=== PATIENT | female | born 1955 | race Caucasian/White ===

== ENCOUNTER → 2017-03-12 | Outpatient (CLI) | payer BC ==
--- NOTE | 2017-03-12 18:27 | WWHP ---
[facility] - HISTORY AND PHYSICAL CHIEF COMPLAINT: The patient is here for her routine gynecologic exam. HPI: This is a 61-year-old, G2, P2, with an LMP of 1997, who is status post vaginal hysterectomy for benign reasons. The patient is without gynecologic complaints. PAST MEDICAL HISTORY: Jon disease with resulting hypothyroidism, elevated cholesterol, chronic hypertension, kidney stones, seasonal allergies, skin melanoma in 2010 and history of osteopenia. MEDICATIONS: 1. Pravachol 20 mg daily. 2. Dyazide 37.5/25 mg 1/2 tablet daily. 3. Levothyroxine 25 mcg daily. 4. Vitamin D3 2000 units daily. 5. Aspirin 81 mg daily. 6. [place] p.r.n. 7. Probiotic 1 to 2 daily. 8. Calcium 600 mg daily. 9. Neosho-3 supplement daily. ALLERGIES: TO CODEINE, WHICH CAUSED VOMITING. PAST SURGICAL, TAILER IN AND FAMILY HISTORIES: Unchanged from the 12/29/2015 H and P. SOCIAL HISTORY: She denies tobacco, alcohol and drug use. She has been since 1973 and continues to work at [employer]. REVIEW OF SYSTEMS: She has gained about 10 pounds over the last year. She denies respiratory, cardiac or GI problems. PHYSICAL EXAM: Blood pressure 138/83, height 5 feet 3 inches, weight 198 pounds, temperature 98.0, pulse 78. This is a well-developed, well-nourished, white female, who is alert and oriented x3, in no acute distress. HEENT: Within normal limits. NECK: Supple without mass or thyromegaly. CHEST AND LUNGS: Clear to auscultation. HEART: Regular rate and rhythm. BREASTS: Without mass or discharge. AXILLARY: Negative for adenopathy. BACK: Negative for CVA tenderness. ABDOMEN: Soft, nontender without palpable masses. PELVIC: External genitalia reveals nveu-tf-syhoybhk atrophy without lesions. Vagina reveals lukw-so-nonzexla atrophy without lesions. There is a grade 2 rectocele noted. The vaginal cuff is well supported. Bimanual is negative for mass or tenderness. RECTOVAGINAL: Negative for mass or tenderness, but does confirm a rectocele. This is negative for occult blood. EXTREMITIES: Nontender. IMPRESSION: 1. A 61-year-old menopausal female who is status post vaginal hysterectomy for benign reasons with grade 2 rectocele which is asymptomatic. 2. History of osteopenia. PLAN: 1. Pap smears have been discontinued. 2. Self-breast examination was discussed. 3. Diagnostic mammogram with right breast ultrasound is due and she will have this done at [facility]. 4. Osteoporosis prevention was discussed. She will follow up with her manager of clinical for bone density testing and further treatment. She states he is managing a parathyroid problem at this time and this may affect her calcium within her body. 5. She will return in 1 year. MMODL / IJN: [id number] /
== END | disposition home or self-care (01) ==
DX: Z01.419 Encounter for gynecological examination (general) (routine) without abnormal findings (principal)

== ENCOUNTER → 2018-03-19 | Outpatient (CLI) | payer BC ==
[2018-03-19 11:04] VITALS: BP 168/72; PULSE 77; TEMP 96.6; BMI 35.0
--- NOTE | 2018-03-19 11:55 | P.HPOB ---
History of Present Illness H&P Date: 03/19/18 Chief Complaint: The patient is here for her routine gynecologic exam. This is a 62-year-old G2 PII with an LMP of 1997. The patient is status post vaginal hysterectomy done for benign reasons. The patient is without gynecologic complaints. She has been followed for a grade 2 rectocele which has been asymptomatic unless she gets very constipated when it can feel like the bulge gets bigger. Review of Systems The patient's weight has been stable over the last year. She denies respiratory , cardiac, or G.I. problems. 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 Osteopenia. 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 She had a vaginal hysterectomy for uterine fibroids. History of Any Multi-Drug Resistant Organisms: None Reported Past Surgical History: Breast Surgery (Breast reduction and breast cyst removed. ), Cholecystectomy, Hysterectomy (Vaginal hysterectomy in 1997), Orthopedic Surgery (Arthroscopic knee surgery) Additional Past Surgical History / Comment(s): Melanoma removed 2009, Lamont neuroma surgery 2006. Colonoscopy 2015 and this was her 2nd. 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 - Past Family History Father Family Medical History: No Reported History Additional Family Medical History / Comment(s): To aunts and a cousin had breast cancer. Grandfather had diabetes. Medications and Allergies Home Medications Medication Instructions Recorded Confirmed Type Aspirin PO DAILY 03/19/18 History Calcium Carbonate [Calcium] PO DAILY 03/19/18 History Cholecalciferol (Vitamin D3) 4,000 PO DAILY 03/19/18 History [Vitamin D3] Levothyroxine Sodium [Synthroid] 50 mcg DAILY 03/19/18 03/19/18 History Pravastatin Sodium [Pravachol] PO DAILY 03/19/18 History Triamterene-Hctz 37.5-25Mg PO DAILY 03/19/18 History [Dyazide 37.5-25 Capsule] Allergies Allergy/AdvReac Type Severity Reaction Status Date / Time codeine AdvReac Severe vomit Unverified 03/19/18 11:01 Exam Vital Signs Temp Pulse BP 03/19/18 11:01 96.6 F L 77 168/72 Intake and Output 03/18/18 03/19/18 03/19/18 22:59 06:59 14:59 Other: Weight 89.811 kg Height 5'3", weight 198 pounds, ZHOU 35.1 This is a well-developed well-nourished heavyset white female who is alert and oriented times 3 in no acute distress. HEENT: Within normal limits. NECK: Supple without mass or thyromegaly. CHEST AND LUNGS: Clear to auscultation. HEART: Regular rate and rhythm. BREASTS: Are without mass or discharge. Breasts are consistent with previous breast reduction surgery. AXILLARY EXAM: Negative for adenopathy. BACK: Negative for CVA tenderness. ABDOMEN: Soft, nontender, without palpable masses. PELVIC EXAM: External genitalia appears normal with mild atrophy. Vagina appears normal is mild atrophy. There is a grade 2 rectocele stable from her previous exam. Bimanual examination is negative for mass or tenderness. RECTAL EXAM: Rectovaginal exam is negative for mass or tenderness and is negative for occult blood. The rectal exam does confirm a small rectocele. EXTREMITIES: Nontender. IMPRESSION: 1. 62-year-old menopausal female status post vaginal hysterectomy for benign reasons with stable grade 2 rectocele. 2. His tree of osteopenia managed by her fire alarm dispatcher. PLAN: 1. Pap smears have been discontinued. 2. Self breast awareness was discussed with the patient. 3. The patient is due for a bilateral diagnostic mammogram due to her previous abnormal mammogram done approximately 2 years ago. The order slip was getting to the patient for this and she states she has an appointment on 03/24/2018 at [facility]. The patient thought she did a follow-up breast imaging study in February 2017, but [facility] was called and they had no record of this. 4. Osteoporosis prevention was discussed. She will continue to be managed for her osteopenia by her fire alarm dispatcher as she has done in the past. This is important for her to follow up with the fire alarm dispatcher especially because of her issues with her parathyroid gland. 5. We have discussed her elevated blood pressure. She states she will do self blood pressure checks at work and follow up with Dr. Ovalle for blood pressure elevations. 6. We will continue to follow her small rectocele conservatively. She was advised to avoid holding her stool longer than necessary. She will call if she is having problems. 7. She will return in one year.
== END | disposition home or self-care (01) ==
LOC: WWCWWP 10:39
PROVIDERS: ATTEND Obstetrics & Gynecology
DX: Z53.9 Procedure and treatment not carried out, unspecified reason (principal)

== ENCOUNTER → 2019-04-15 | Outpatient (CLI) | payer BC ==
[2019-04-15 11:30] VITALS: BP 136/83; PULSE 70; RESP 18; TEMP 98.8; BMI 35.0
--- NOTE | 2019-04-15 12:03 | P.HPOB ---
History of Present Illness H&P Date: 04/15/19 Chief Complaint: The patient is here for her routine gynecologic exam. This is a 63-year-old with an LMP of 1997. The patient is without gynecologic complaints. She denies any significant hot flashes but occasionally feels warm. Review of Systems The patient's weight has been stable over the last year. She denies respiratory, cardiac, or G.I. problems. She recently got over a upper respiratory infection. Past Medical History Past Medical History: Cancer, Hyperlipidemia, Hypertension, Thyroid Disorder Additional Past Medical History / Comment(s): Melanoma of the skin 2010. 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 Osteopenia. 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 She had a vaginal hysterectomy for uterine fibroids. History of Any Multi-Drug Resistant Organisms: None Reported Past Surgical History: Breast Surgery, Cholecystectomy, Hysterectomy, Orthopedic Surgery Additional Past Surgical History / Comment(s): Melanoma removed 2009, Lamont neuroma surgery 2006. Colonoscopy 2015 and this was her 2nd. 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 - Past Family History Father Family Medical History: No Reported History Additional Family Medical History / Comment(s): To aunts and a cousin had breast cancer. Grandfather had diabetes. Sister(s) Family Medical History: Cancer Additional Family Medical History / Comment(s): Lungs cancer. Medications and Allergies Home Medications Medication Instructions Recorded Confirmed Type Aspirin 81 mg PO DAILY 03/19/18 04/15/19 History Calcium Carbonate [Calcium] 600 mg PO DAILY 03/19/18 04/15/19 History Cholecalciferol (Vitamin D3) 50,000 units PO QMONTH 03/19/18 04/15/19 History [Vitamin D3] Levothyroxine Sodium [Synthroid] 50 mcg PO DAILY 03/19/18 04/15/19 History Pravastatin Sodium [Pravachol] 20 mg PO DAILY 03/19/18 04/15/19 History Allergies Allergy/AdvReac Type Severity Reaction Status Date / Time codeine AdvReac Severe vomit Unverified 04/15/19 11:33 Exam Vital Signs Temp Pulse Resp BP Pulse Ox 04/15/19 11:24 98.8 F 70 18 136/83 93 L Intake and Output 04/14/19 04/15/19 04/15/19 22:59 06:59 14:59 Other: Weight 89.811 kg Height 5 feet 3 inches, weight 198 pounds, BMI 35.1. This is a well-developed well-nourished white female who is alert and oriented times 3 in no acute distress. HEENT: Within normal limits. NECK: Supple without mass or thyromegaly. CHEST AND LUNGS: Clear to auscultation. HEART: Regular rate and rhythm. BREASTS: Are without mass or discharge. Breasts are consistent with previous breast reduction surgery. AXILLARY EXAM: Negative for adenopathy. BACK: Negative for CVA tenderness. ABDOMEN: Soft, nontender, without palpable masses. PELVIC EXAM: External genitalia appears normal with mild atrophy. Vagina appears normal mild atrophy. There is a stable grade 1-2 rectocele. There is otherwise no other significant prolapse. Bimanual examination is negative for mass or tenderness. RECTAL EXAM: Rectovaginal exam is negative for mass or tenderness and is negative for occult blood. EXTREMITIES: Nontender. IMPRESSION: 1. 63-year-old menopausal female who is status post vaginal hysterectomy for benign reasons with stable grade 1-2 rectocele. 2. History of osteopenia followed by her inspector crystal. PLAN: 1. Pap smears have been discontinued. 2. Self breast awareness was discussed with the patient. 3. Screening mammogram was recently done on 04/01/2019 at [facility]. This was benign. She will repeat this in 1 year. 4. Osteoporosis prevention was discussed with the patient. She states she has a bone density test scheduled in May 2019. She will continue to see her inspector crystal for this. 5. She was advised to return in one year for her annual well woman exam.
== END | disposition home or self-care (01) ==
LOC: WWCWWP 11:07
PROVIDERS: ATTEND Obstetrics & Gynecology
DX: Z53.9 Procedure and treatment not carried out, unspecified reason (principal)

== ENCOUNTER → 2020-04-27 | Outpatient (CLI) | payer BC ==
[2020-04-27 10:47] VITALS: BP 122/61; PULSE 85; RESP 18; TEMP 98.3
--- NOTE | 2020-04-27 11:34 | P.HPOB ---
History of Present Illness H&P Date: 04/27/20 Chief Complaint: The patient is here for her routine gynecologic exam. This is a 64-year-old with an LMP of 1997. The patient is status post vaginal hysterectomy for benign reasons. She has been experiencing some bladder issues including occasional urinary leaking with coughing with are without urgency. She feels like her bladder capacity has decreased with time. She denies any dysuria. She denies urinary urgency after voiding. She states it does not feel like a urinary tract infection. Review of Systems The patient has gained 3 pounds over the last year. She denies respiratory, cardiac, or G.I. problems. Past Medical History Past Medical History: Cancer, Hyperlipidemia, Hypertension, Thyroid Disorder Additional Past Medical History / Comment(s): Melanoma of the skin 2010. 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 Osteopenia. 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 She had a vaginal hysterectomy for uterine fibroids. History of Any Multi-Drug Resistant Organisms: None Reported Past Surgical History: Breast Surgery, Cholecystectomy, Hysterectomy, Orthopedic Surgery Additional Past Surgical History / Comment(s): Melanoma removed 2009, Lamont neuroma surgery 2006. Vaginal hysterectomy 1997. Colonoscopy 2016(next after 10yr). 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 - Past Family History Father Family Medical History: No Reported History Additional Family Medical History / Comment(s): To aunts and a cousin had breast cancer. Grandfather had diabetes. Sister(s) Family Medical History: Cancer Additional Family Medical History / Comment(s): Lungs cancer. Medications and Allergies Home Medications Medication Instructions Recorded Confirmed Type Aspirin 81 mg PO DAILY 03/19/18 04/27/20 History Calcium Carbonate [Calcium] 600 mg PO DAILY 03/19/18 04/27/20 History Cholecalciferol (Vitamin D3) 50,000 units PO QMONTH 03/19/18 04/27/20 History [Vitamin D3] Levothyroxine Sodium [Synthroid] 50 mcg PO DAILY 03/19/18 04/27/20 History Pravastatin Sodium [Pravachol] 20 mg PO DAILY 03/19/18 04/27/20 History Allergies Allergy/AdvReac Type Severity Reaction Status Date / Time codeine AdvReac Severe vomit Unverified 04/27/20 10:39 Exam Vital Signs Temp Pulse Resp BP Pulse Ox 04/27/20 10:41 98.3 F 85 18 122/61 94 L Intake and Output 04/26/20 04/27/20 04/27/20 22:59 06:59 14:59 Other: Weight 91.172 kg Height 5 feet 3 inches, weight 201 pounds, BMI 35.6. This is a well-developed well-nourished heavyset white female who is alert and oriented times 3 in no acute distress. HEENT: Within normal limits. NECK: Supple without mass or thyromegaly. CHEST AND LUNGS: Clear to auscultation. HEART: Regular rate and rhythm. BREASTS: Are without mass or discharge. Breasts are consistent with previous bilateral breast reduction surgery. AXILLARY EXAM: Negative for adenopathy. BACK: Negative for CVA tenderness. ABDOMEN: Soft, nontender, without palpable masses. PELVIC EXAM: External genitalia appears normal with mild atrophy. Vagina appears normal with mild atrophy. There is a grade 2 rectocele which is stable from her previous examination. There is no significant cystocele. There is slight urethral mobility with cough. No urinary leakage was demonstrated. Bimanual examination is negative for mass or tenderness. RECTAL EXAM: Rectovaginal exam is negative for mass or tenderness and is negative for occult blood. This does confirm a small rectocele. EXTREMITIES: Nontender. IMPRESSION: 1. 64-year-old menopausal female status post vaginal hysterectomy with a stable grade 2 rectocele which is asymptomatic. 2. Mild mixed urinary incontinence with no significant cystocele. 3. History of osteopenia which is managed by her cardiovascular rn who also manages her parathyroid problem. PLAN: 1. Pap smears have been discontinued. 2. Self breast awareness was discussed with the patient. 3. Screening mammogram was recently done on 04/05/2020 and was benign. This was done at [facility]. 4. We have had a long discussion regarding urinary incontinence. I have recommended regular ketal exercises, timed voids and trying to empty her bladder as completely as possible by relaxing and giving herself enough time. Information on kegal exercises as well as the ACOG FAQ handout on pelvic prolapse were given to the patient 5. Osteoporosis prevention was discussed. I have stressed the importance of adequate calcium, vitamin D and regular exercise. Recommended amounts of calcium and vitamin D were also discussed. She will continue to do bone density testing through her cardiovascular rn who has managed her osteopenia. 6. She was advised to return in one year for her annual well woman exam and as needed.
== END | disposition home or self-care (01) ==
LOC: WWCWWP 10:33
PROVIDERS: ATTEND Obstetrics & Gynecology
DX: Z53.9 Procedure and treatment not carried out, unspecified reason (principal)

== ENCOUNTER → 2021-02-27 | Outpatient (CLI) | payer BC ==
--- NOTE | 2021-02-27 10:18 | MR ---
EXAMINATION TYPE: MR cervical spine wo con DATE OF EXAM: 02/27/2021 COMPARISON: HISTORY: TECHNIQUE: Multiplanar, multisequence images of the cervical spine were acquired without contrast. C2-C3: No evidence for degenerative disc disease. No disc bulge/herniation or protrusion. No Canal stenosis. Foramina are patent bilaterally. C3-C4: No evidence for degenerative disc disease. No disc bulge/herniation or protrusion. No Canal stenosis. Foramina are patent bilaterally, there is some facet arthropathy encroaching minimally on the right. C4-C5: Minimal posterior central disc protrusion causes slight anterior mass effect on the thecal sac No Canal stenosis. Foramina are patent bilaterally, uncovertebral joint hypertrophy is noted encroa tanmay minimally. C5-C6: Posterior extension endplate disc complex effaces the anterior thecal sac, uncovertebral joint hypertrophy results in some bilateral foraminal encroachment. No significant spinal stenosis. C6-C7: Posterior extension into a disc complex causes intermittent aspect of the thecal sac, there is possibly contacting the anterior cervical cord, some local mass effect, moderate spinal stenosis. Bi lateral foraminal encroachment is present due to uncovertebral joint hypertrophy and facet arthropath y. C7-T1: There is a posterior right paracentral disc herniation causing anterior mass effect on the the jamarcus sac, there is possibly some deformity of the cervical cord. Only mild spinal stenosis. No signifi cant foraminal encroachment. Cervical segments are intact. There is normal alignment. Cervical spinal cord is of normal signal. Craniovertebral junction relationships are within normal limits. Cervical vertebral bodies show pre served height, there is spondylosis is presently at C5-6 and C6-7 with some endplate discogenic marro w signal change. Loss of disc height and signal is greatest at C6-7 consistent with disc desiccation and degenerative disc disease. There is some inflammatory change present within the maxillary sinus o n the right, likely a mucous retention cyst measuring 3.6 cm. This is only partially visualized. IMPRESSION: Degenerative disc disease is most significant at C6-7, there is possibly mass effect on the cervical cord, bilateral foraminal encroachment, some spinal stenosis noted. Sinus disease as described.
== END | disposition home or self-care (01) ==
LOC: RADMRIMAIN 08:56
PROVIDERS: ATTEND Family Medicine
DX: M50.323 Other cervical disc degeneration at C6-C7 level (principal); M48.02 Spinal stenosis, cervical region
CPT/HCPCS: 72141

== ENCOUNTER → 2021-05-02 | Outpatient (CLI) | payer MEDICARE, BC ==
[2021-05-02 13:04] VITALS: BP 121/77; PULSE 74; RESP 18; TEMP 97.9
--- NOTE | 2021-05-02 13:42 | P.HPOB ---
History of Present Illness H&P Date: 05/02/21 Chief Complaint: The patient is here for her routine gynecologic exam. This is a 65-year-old with an LMP of 1997. The patient is without gynecologic complaints and denies any postmenopausal bleeding. He denies any significant problems with her known rectocele. Review of Systems The patient has lost 5 pounds over the last year. She denies respiratory, cardiac, or G.I. problems. Past Medical History Past Medical History: Cancer, Hyperlipidemia, Hypertension, Thyroid Disorder Additional Past Medical History / Comment(s): Melanoma of the skin 2010. 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 Osteopenia. 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 She had a vaginal hysterectomy for uterine fibroids. History of Any Multi-Drug Resistant Organisms: None Reported Past Surgical History: Breast Surgery, Cholecystectomy, Hysterectomy, Orthopedic Surgery Additional Past Surgical History / Comment(s): Melanoma removed 2009, Lamont neuroma surgery 2006. Vaginal hysterectomy 1997. Colonoscopy 2015(next after 10yr). 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 - Past Family History Father Family Medical History: No Reported History Additional Family Medical History / Comment(s): To aunts and a cousin had breast cancer. Grandfather had diabetes. Sister(s) Family Medical History: Cancer Additional Family Medical History / Comment(s): Lungs cancer. Medications and Allergies Home Medications Medication Instructions Recorded Confirmed Type Aspirin 81 mg PO DAILY 03/19/18 05/02/21 History Calcium Carbonate [Calcium] 600 mg PO DAILY 03/19/18 05/02/21 History Cholecalciferol (Vitamin D3) 7,000 units PO DAILY 03/19/18 05/02/21 History [Vitamin D3] Levothyroxine Sodium [Synthroid] 50 mcg PO DAILY 03/19/18 05/02/21 History Pravastatin Sodium [Pravachol] 20 mg PO DAILY 03/19/18 05/02/21 History Allergies Allergy/AdvReac Type Severity Reaction Status Date / Time codeine AdvReac Severe vomit Unverified 05/02/21 13:00 Exam Vital Signs Temp Pulse Resp BP Pulse Ox 12/07/21 13:01 97.9 F 74 18 121/77 98 Intake and Output 05/01/21 05/02/21 05/02/21 22:59 06:59 14:59 Other: Weight 88.904 kg Height 5 feet 2-1/2 inches, weight 196 pounds, BMI 35.3. This is a well-developed well-nourished white female who is alert and oriented times 3 in no acute distress. HEENT: Within normal limits. NECK: Supple without mass or thyromegaly. CHEST AND LUNGS: Clear to auscultation. HEART: Regular rate and rhythm. BREASTS: Are without mass or discharge. AXILLARY EXAM: Negative for adenopathy. BACK: Negative for CVA tenderness. ABDOMEN: Soft, nontender, without palpable masses. PELVIC EXAM: External genitalia appears normal with mild atrophy. Vagina appears normal of atrophy. There is a stable grade 2 rectocele. There is no other evidence of prolapse. Bimanual examination is negative for mass or tenderness. RECTAL EXAM: Rectovaginal exam is negative for mass or tenderness and is negative for occult blood. Rectal exam does confirm the grade 2 rectocele. EXTREMITIES: Nontender. IMPRESSION: 1. 65-year-old menopausal female status post vaginal hysterectomy for benign reasons, with stable grade 2 asymptomatic rectocele. 2. History of osteopenia followed by her interior specialist who also manages her parathyroid problem. PLAN: 1. Pap smears have been discontinued. 2. Self breast awareness was discussed with the patient. We have also discussed symptoms associated with inflammatory breast cancer. 3. Screening mammogram was recently done at [facility] on 04/18/2021 and was benign. She will repeat this in 1 year. 4. Osteoporosis prevention was discussed. I have stressed the importance of adequate calcium, vitamin D and regular exercise. Recommended amounts of calcium and vitamin D were also discussed. She will continue to do bone density testing was through her interior specialist as she has done in the past. 5. She was advised to return in one year for her annual well woman exam.
== END ==
LOC: WWCWWP 12:40
PROVIDERS: ATTEND Obstetrics & Gynecology
DX: N81.6 Rectocele (principal); I10 Essential (primary) hypertension; E78.5 Hyperlipidemia, unspecified; Z90.710 Acquired absence of both cervix and uterus; Z87.39 Personal history of other diseases of the musculoskeletal system and connective tissue; Z88.5 Allergy status to narcotic agent

== ENCOUNTER → 2021-07-06 | Outpatient (CLI) | payer BC ==
--- NOTE | 2021-07-06 15:45 | SFUN ---
SLEEP CENTER FOLLOW UP NOTE DATE OF SERVICE: 07/06/2021 This 66-year-old lady has been followed in Sleep Center for treatment of obstructive sleep apnea-hypopnea syndrome. Recently the patient had a home sleep apnea test which showed that she has obstructive sleep apnea. She was started on treatment with CPAP for correction of respiratory abnormalities. Today is her first visit after she was started on treatment with CPAP. She is able to use it every night. Feels that she sleeps better with the machine. [place] Sleepiness Scale today is 5, which is normal. I checked her CPAP unit. It is in automatic regimen with pressure between 8 and 12, average pressure 11.8 cm of water. Usage is 30/30 nights and 29/30 nights for more than 4 hours. Average usage 5 hours 26 minutes, which is good compliance. Apnea- hypopnea index 1.0, which is perfect. Leak is 26.7 L/minute, which is borderline. MEDICATIONS: 1. Losartan. 2. Levothyroxine 50 mcg once a day. 3. Pravastatin 20 mg once a day. 4. Pravachol 20 mg once a day. 5. Aspirin 81 mg once a day. PHYSICAL EXAMINATION: GENERAL: Pleasant patient in no distress. VITAL SIGNS: BP 126/75, HR 83, RR 16, weight 201.4, temperature 96.6, oxygen saturation at room air 94%. HEENT: PERRLA, EOMI, evaluation of oropharynx showed tongue protrudes midline. Extremely low position of soft palate; Mallampati IV. NECK: Supple, no JVD. Thyroid is not palpable. Neck measures 16 inches in circumference. LUNGS: Clear to percussion and to auscultation. Good air exchange. No wheezing or rhonchi. HEART: S1, S2 regular. No murmurs, gallops, or rubs. ABDOMEN: Obese. EXTREMITIES: No clubbing or cyanosis. PIN PULLER: Awake, alert, and oriented X3. Cranial nerves 2 to 7 intact. There is no fasciculation or atrophy. noted. No focal deficits observed. IMPRESSION: 1. Obstructive sleep apnea-hypopnea syndrome. The patient demonstrated 100% compliance with treatment, benefitting from treatment. Normal respiration on CPAP. 2. Obesity. 3. Hypertension. 4. History of Jon's thyroiditis, hypothyroidism. 5. Hyperlipidemia. 6. History of allergic asthma. 7. Seasonal allergies. 8. History of parathyroid tumor. 9. History of melanoma of left leg, status post surgical treatment. 10.History of sinusitis. PLAN: 1. I discussed with the patient the position of the machine, adjustments of humidity, using distilled water, and the necessity to make sure the humidifier is dry in the morning after using the machine. 2. Patient will continue to use PAP equipment every night for the whole night. 3. Sleep hygiene with regular time in bed for at least 7-1/2 to 8 hours. 4. Precautions related to driving. No driving if feeling sleepiness. 5. I will maintain all necessary prescription for PAP supplies including mask, tube, filters. 6. Watching weight. 7. Follow-up visit in 6 months or earlier if patient has any problems. Thank you very much for allowing me to participate in the management of your patient. Sincerely, Daniel Noel MD, PhD, FAASM Diplomat of [place] [employer] Sleep Medicine Board of [place] [employer] Lube Attendant of [facility] [place] MMODL / ELSIEN: [id number] /
== END ==
LOC: SLEEP 14:15
PROVIDERS: ATTEND Internal Medicine
DX: G47.33 Obstructive sleep apnea (adult) (pediatric) (principal); E66.9 Obesity, unspecified; I10 Essential (primary) hypertension; E03.9 Hypothyroidism, unspecified; E78.5 Hyperlipidemia, unspecified; Z86.39 Personal history of other endocrine, nutritional and metabolic disease; J30.2 Other seasonal allergic rhinitis; Z99.89 Dependence on other enabling machines and devices; Z85.850 Personal history of malignant neoplasm of thyroid; Z87.09 Personal history of other diseases of the respiratory system; Z85.820 Personal history of malignant melanoma of skin; Z98.890 Other specified postprocedural states; Z79.899 Other long term (current) drug therapy; Z79.890 Hormone replacement therapy; Z88.5 Allergy status to narcotic agent

== ENCOUNTER → 2021-09-04 | Outpatient (CLI) | payer BC, MEDICARE | END | disposition home or self-care (01) | LOC: LABWHC1 11:53 | PROVIDERS: ATTEND Family Medicine | DX: Z20.822 Contact with and (suspected) exposure to COVID-19 (principal) | CPT/HCPCS: U0003; C9803 ==

== ENCOUNTER → 2021-11-23 | Outpatient (CLI) | payer BC, MEDICARE ==
--- NOTE | 2021-11-23 15:48 | P.PN ---
Subjective DATE: 11/23/2021 FOLLOW UP VISIT. Patient with obstructive sleep apnea hypopnea syndrome return to sleep center for follow-up visit. Patient is using PAP equipment every night for the whole night, getting PAP supplies in time. The patient does not have significant problems with the mask, PAP unit and humidification. [place] sleepiness scale is 4. I checked information from PAP unit. PAP unit pressure 08-12 average 11.8 cm H2O. Usage is 87 % for more then 4 hours, average 6.1 hours per night. Leak is 44.4 l/m, which is increased. Apnea Hypopnea Index is 1, which is perfect. MEDICATIONS:1. Losartan 2. Levothyroxine 50 g once a day 3. Pravastatin 20 mg once a day 4. Pravachol 20 mg once a day 5. Aspirin 81 mg once a day During physical exam: GENERAL: A pleasant patient without any distress. VITAL SIGNS: BP 123/78, HR 77, RR 12 , weight 202, temperature 96.2, oxygen saturation at room air 92%, height 5 foot 3 . HEENT: PERRLA, EOMI.low position of soft palate, Mallapati 4 . NECK: Supple. No JVD. LUNGS: Clear to percussion and to auscultation. Good air exchange. No wheezing or rhonchi. HEART: S1, S2 regular. ABDOMEN: Soft and nontender. Obese EXTREMITIES: No clubbing or cyanosis. RADIOLOGY EQUIPMENT SERVICER: Awake, alert, and oriented x3. No focal deficit. Impressions: 1. Obstructive sleep apnea-hypopnea syndrome. Patient demonstrated great compliance with treatment, benefiting from treatment. 2. Hypertension. 3. History of Jon thyroiditis, hypothyroidism. 4. obesity. 5. Hyperlipidemia. 6. Seasonal ALLERGIES. 7. History of ALLERGIC asthma. 8. History of parathyroid tumor. 9. History of melanoma of left leg, status post surgical treatment. 10 history of sinusitis Plan: 1. Continue using PAP equipment every night for the whole night. 2. To change air filter at least 1-2 times per month. 3. PAP unit should stay lower then position of the head. 4. Advised patient to remove all remaining water from humidifier canister daily and make it dry after each usage. Refill canister with fresh distilled water before each usage. 5. Sleep hygiene with regular time in bed for at least 8 hours. 6. Precautions related to driving. No driving if feel any sleepiness. 7. I will maintain prescription for PAP supplies including mask, tube, filters. 8. Follow up visit in 6 months or earlier if patient has any problems. 9. Watching weight. Thank you very much for allowing me to participate in the management of your patient. Daniel Noel MD, PhD, FAASM. Diplomat of [place] [employer], Sleep Medicine Board by [place] [employer] Plug Machine Operator [facility] [place]
== END ==
LOC: SLEEP 15:21
PROVIDERS: ATTEND Internal Medicine
DX: G47.33 Obstructive sleep apnea (adult) (pediatric) (principal); I10 Essential (primary) hypertension; E03.9 Hypothyroidism, unspecified; E66.9 Obesity, unspecified; E78.5 Hyperlipidemia, unspecified; Z86.39 Personal history of other endocrine, nutritional and metabolic disease; Z87.09 Personal history of other diseases of the respiratory system; Z98.890 Other specified postprocedural states; Z85.820 Personal history of malignant melanoma of skin; Z99.89 Dependence on other enabling machines and devices; Z79.890 Hormone replacement therapy; Z79.899 Other long term (current) drug therapy; Z88.5 Allergy status to narcotic agent

== ENCOUNTER → 2022-05-09 | Outpatient (CLI) | payer MEDICARE, BC ==
--- NOTE | 2022-05-09 10:16 | XR ---
EXAMINATION TYPE: XR KUB DATE OF EXAM: 05/09/2022 COMPARISON: NONE HISTORY: Pain TECHNIQUE: One view abdominal series FINDINGS: The osseous structures are intact. The bowel gas pattern is nonspecific. Arthropathy of the hips. Ca lcifications in the pelvis are likely vascular. Surgical clips in the upper abdomen. There is a punctate 2 mm calcification adjacent to the transverse process on the right. There is a 2 to 3 mm calculus overlying the right renal outline near the right transverse process of L2. There is a punctate 1 to 2 mm calculus overlying the upper pole of left kidney. Findings suggestive of bilater al nephrolithiasis. IMPRESSION: 1. Nonspecific abdomen. 2. Suspect 2 mm right renal calculus and punctate 1 to 2 mm upper pole left renal calculus.
== END | disposition home or self-care (01) ==
LOC: RADXRMAIN 09:36
PROVIDERS: ATTEND Urology
DX: N20.2 Calculus of kidney with calculus of ureter (principal)
CPT/HCPCS: 74018

== ENCOUNTER → 2022-06-19 | Outpatient (CLI) | payer MEDICARE, BC ==
[2022-06-19 13:33] VITALS: BP 113/72; PULSE 67; RESP 17; TEMP 97.8
--- NOTE | 2022-06-19 14:11 | P.HPOB ---
History of Present Illness H&P Date: 06/19/22 Chief Complaint: The patient is here for her routine gynecologic exam. This is a 67-year-old with an LMP of 1997. The patient is status post vaginal hysterectomy for benign reasons. She is without gynecologic complaints. She does have a known rectocele which does not cause her any problems. Review of Systems The patient has gained 8 pounds over the last year. She denies respiratory, cardiac, or G.I. problems. Past Medical History Past Medical History: Cancer, Hyperlipidemia, Hypertension, Thyroid Disorder Additional Past Medical History / Comment(s): Melanoma of the skin 2010. 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 Osteopenia. 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 She had a vaginal hysterectomy for uterine fibroids. History of Any Multi-Drug Resistant Organisms: None Reported Past Surgical History: Breast Surgery, Cholecystectomy, Hysterectomy, Orthopedic Surgery Additional Past Surgical History / Comment(s): Melanoma removed 2009, [place] neuroma surgery 2006. Neck surgery. Vaginal hysterectomy 1997. Colonoscopy 2015(next after 10yr). 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 - Past Family History Father Family Medical History: Cancer Additional Family Medical History / Comment(s): Lung cancer. Two aunts and a cousin had breast cancer. Grandfather had diabetes. Sister(s) Family Medical History: Cancer Additional Family Medical History / Comment(s): Lungs cancer. Medications and Allergies Home Medications Medication Instructions Recorded Confirmed Type Aspirin 81 mg PO DAILY 03/19/18 06/19/22 History Calcium Carbonate [Calcium] 600 mg PO DAILY 03/19/18 06/19/22 History Cholecalciferol (Vitamin D3) 7,000 units PO DAILY 03/19/18 06/19/22 History [Vitamin D3] Levothyroxine Sodium [Synthroid] 50 mcg PO DAILY 03/19/18 06/19/22 History Pravastatin Sodium [Pravachol] 20 mg PO DAILY 03/19/18 06/19/22 History Fexofenadine HCl [[place] Allergy] 180 mg PO DIRECTED PRN 06/19/22 06/19/22 History L.acidoph,Paracasei, B.lactis 1 cap PO DAILY 06/19/22 06/19/22 History [Probiotic] Losartan Potassium [Cozaar] 50 mg PO DAILY 06/19/22 06/19/22 History Allergies Allergy/AdvReac Type Severity Reaction Status Date / Time codeine AdvReac Severe vomit Unverified 06/19/22 13:24 Exam Vital Signs Temp Pulse Resp BP Pulse Ox 06/19/22 13:29 97.8 F 67 17 113/72 98 Intake and Output 06/18/22 06/19/22 06/19/22 22:59 06:59 14:59 Other: Weight 92.533 kg Height 5 feet 3 inches, weight 204 pounds, BMI 36.1. This is a well-developed well-nourished white female who is alert and oriented times 3 in no acute distress. HEENT: Within normal limits. NECK: Supple without mass or thyromegaly. CHEST AND LUNGS: Clear to auscultation. HEART: Regular rate and rhythm. BREASTS: Are without mass or discharge. AXILLARY EXAM: Negative for adenopathy. BACK: Negative for CVA tenderness. ABDOMEN: Soft, nontender, without palpable masses. PELVIC EXAM: External genitalia appears normal with mild atrophy. Vagina appears normal is mild atrophy. There is a stable grade 2 rectocele. Bimanual examination is negative for mass or tenderness. RECTAL EXAM: Rectovaginal exam is negative for mass or tenderness and is negative for occult blood. EXTREMITIES: Nontender. IMPRESSION: 1. 67-year-old menopausal female with history of previous vaginal hysterectomy for benign reasons, with stable grade 2 asymptomatic rectocele. 2. History of osteopenia followed by her private banker, who also manages her parathyroid problem. PLAN: 1. Pap smears have been discontinued. 2. Self breast awareness was discussed with the patient. We have also discussed symptoms associated with inflammatory breast cancer. 3. Screening mammogram was done on 05/25/2022 at [facility] and was benign. The order slip for the upcoming year was given to the patient. 4. Osteoporosis prevention was discussed. I have stressed the importance of adequate calcium, vitamin D and regular exercise. Recommended amounts of calcium and vitamin D were also discussed. She will continue to follow up with her private banker regarding bone density testing. She believes she will be due for this next year. 5. Her rectocele will continue to be followed conservatively. She will avoid holding stool longer than necessary. She will call if problems. 6. The patient was advised to return in 1-2 years for her well woman examination.
== END ==
LOC: WWCWWP 13:19
PROVIDERS: ATTEND Obstetrics & Gynecology
DX: Z01.411 Encounter for gynecological examination (general) (routine) with abnormal findings (principal); Z87.310 Personal history of (healed) osteoporosis fracture; Z79.82 Long term (current) use of aspirin; Z79.890 Hormone replacement therapy; Z88.5 Allergy status to narcotic agent; E78.5 Hyperlipidemia, unspecified; I10 Essential (primary) hypertension

== ENCOUNTER → 2022-09-05 | Outpatient (CLI) | payer BC ==
--- NOTE | 2022-09-05 10:56 | P.PN ---
Subjective DATE: 09/05/2022 FOLLOW UP VISIT. Patient with obstructive sleep apnea hypopnea syndrome return to sleep center for follow-up visit. Information from previous visit have been reviewed. Patient is using PAP equipment every night for the whole night, getting PAP supplies in time. The patient does not have significant problems with the mask, PAP unit and humidification. [place] sleepiness scale is 4, which is absolutely normal. I checked information from PAP unit. PAP unit pressure 8-12, average 11.7 cm H2O. Usage is 98 % for more then 4 hours, average 6.4 hours per night. Leak is slightly high 47 l/m. Apnea Hypopnea Index is 1.3, which is normal. MEDICATIONS:1. Losartan 50 mg once a day 2. Levothyroxine 50 g once a day 3. Pravastatin 20 mg once a day 4. Aspirin 81 mg once a day 5. [place] 180 mg as needed During physical exam: GENERAL: A pleasant patient without any distress. VITAL SIGNS: BP 131/79, HR 77, RR 16 , weight 206, BMI 36.4, temperature 97.2, oxygen saturation at room air 95 % . HEENT: PERRLA, EOMI.low position of soft palate, Mallapati 4 . NECK: Supple. No JVD. LUNGS: Clear to percussion and to auscultation. Good air exchange. No wheezing or rhonchi. HEART: S1, S2 regular. ABDOMEN: Soft and nontender. Slightly obese EXTREMITIES: No clubbing or cyanosis. STATE [employer]AL RELATIONS DEPUTY DIRECTOR: Awake, alert, and oriented x3. No focal deficit. Impressions: 1. Obstructive sleep apnea-hypopnea syndrome. Patient demonstrated great compliance with treatment, benefiting from treatment. 2. Obesity BMI 36.4, patient increased to wait on 4 pounds comparing with previous visit. 3. Hypertension. 4. Hyperlipidemia. 5. History of Jon thyroiditis, hypothyroidism. 6. Seasonal ALLERGIES. 7. History of ALLERGIC asthma. 8. History of melanoma of left leg, treated surgically. 9. History of parathyroid tumor. 10. History of sinusitis. 11.[]. 12.[]. Plan: 1. Continue using PAP equipment every night for the whole night. 2. To change air filter at least 1-2 times per month. 3. PAP unit should stay lower then position of the head. 4. Advised patient to remove all remaining water from humidifier canister daily and make it dry after each usage. Refill canister with fresh distilled water before each usage. 5. Sleep hygiene with regular time in bed for at least 8 hours. 6. Precautions related to driving. No driving if feel any sleepiness. 7. I will maintain prescription for PAP supplies including mask, tube, filters. 8. Watching and losing weight. 9. Follow up visit in 6 months or earlier if patient has any problems. Thank you very much for allowing me to participate in the management of your patient. Daniel Noel MD, PhD, FAASM. Diplomat of [place] [employer], Sleep Medicine Board by [place] [employer] Theatrical Rigger of [facility] [place]
== END ==
LOC: SLEEP 10:06
PROVIDERS: ATTEND Internal Medicine
DX: G47.33 Obstructive sleep apnea (adult) (pediatric) (principal); E06.3 Autoimmune thyroiditis; E66.9 Obesity, unspecified; E78.5 Hyperlipidemia, unspecified; J45.909 Unspecified asthma, uncomplicated; Z68.36 Body mass index [BMI] 36.0-36.9, adult; Z79.899 Other long term (current) drug therapy; Z85.820 Personal history of malignant melanoma of skin; Z99.89 Dependence on other enabling machines and devices; Z87.09 Personal history of other diseases of the respiratory system; Z79.890 Hormone replacement therapy; Z79.82 Long term (current) use of aspirin; Z88.5 Allergy status to narcotic agent
CPT/HCPCS: 99212

== ENCOUNTER 2022-10-07 11:34 | Emergency (ER) | payer MEDICARE, BC ==
[2022-10-07] MEDS ORDERED: SODIUM CHLORIDE 0.9% 1,000 ML IV STA (12:38)
[2022-10-07] MEDS ORDERED: METOCLOPRAMIDE 5 MG/ML 2 ML VIAL IVP STA (12:38)
[2022-10-07] MEDS ORDERED: HYDROmorphone 1 MG/ML 1 ML SYRINGE IVP STA (12:38)
--- NOTE | 2022-10-07 12:41 | ED ---
General Adult HPI - General Chief complaint: Abdominal Pain Stated complaint: kidney stones Time Seen by Provider: 10/07/22 12:26 Source: patient, family, RN notes reviewed, old records reviewed (Reviewed records from [facility] including labs and computed tomography scan.) Mode of arrival: ambulatory Limitations: no limitations - History of Present Illness Initial comments: Patient is a pleasant 67-year-old female presenting to the emergency department with concerns for abdominal pain. Onset of symptoms was yesterday morning, just over 24 hours ago. Patient has had similar symptoms around 4 times previously associated with kidney stone. Patient agreed [facility] and diagnosed with kidney stone. Discomfort has been waxing and waning. Patient did take Toradol and Zofran this morning without much improvement of symptoms. Discomfort remains moderate. No fever. No hematuria. Discomfort is right lower flank and somewhat right lower back. - Related Data Home Medications Medication Instructions Recorded Confirmed Aspirin 81 mg PO DAILY 03/19/18 06/19/22 Calcium Carbonate [Calcium] 600 mg PO DAILY 03/19/18 06/19/22 Cholecalciferol (Vitamin D3) 7,000 units PO DAILY 03/19/18 06/19/22 [Vitamin D3] Levothyroxine Sodium [Synthroid] 50 mcg PO DAILY 03/19/18 06/19/22 Pravastatin Sodium [Pravachol] 20 mg PO DAILY 03/19/18 06/19/22 Fexofenadine HCl [[place] Allergy] 180 mg PO DIRECTED PRN 06/19/22 06/19/22 L.acidoph,Paracasei, B.lactis 1 cap PO DAILY 06/19/22 06/19/22 [Probiotic] Losartan Potassium [Cozaar] 50 mg PO DAILY 06/19/22 06/19/22 Allergies Allergy/AdvReac Type Severity Reaction Status Date / Time codeine AdvReac Severe vomit Verified 10/07/22 12:58 Review of Systems ROS Statement: Those systems with pertinent positive or pertinent negative responses have been documented in the HPI. ROS Other: All systems not noted in ROS Statement are negative. Constitutional: Denies: fever Eyes: Denies: eye pain ENT: Denies: ear pain Respiratory: Denies: cough Cardiovascular: Denies: chest pain Endocrine: Denies: fatigue Gastrointestinal: Reports: as per HPI, abdominal pain, nausea Genitourinary: Denies: dysuria Musculoskeletal: Denies: back pain Skin: Denies: rash Neurological: Denies: weakness Past Medical History Past Medical History: Cancer, Hyperlipidemia, Hypertension, Thyroid Disorder Additional Past Medical History / Comment(s): Melanoma of the skin 2010. 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 Osteopenia. 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 She had a vaginal hysterectomy for uterine fibroids. kidney stones History of Any Multi-Drug Resistant Organisms: None Reported Past Surgical History: Breast Surgery, Cholecystectomy, Hysterectomy, Orthopedic Surgery Additional Past Surgical History / Comment(s): Melanoma removed 2009, Lamont neuroma surgery 2006. Neck surgery. Vaginal hysterectomy 1997. Colonoscopy 2016(next after 10yr). cervical fusion Past Psychological History: No Psychological Hx Reported Smoking Status: Never smoker Past Alcohol Use History: Rare Past Drug Use History: None Reported - Past Family History Father Family Medical History: Cancer Additional Family Medical History / Comment(s): Lung cancer. Two aunts and a cousin had breast cancer. Grandfather had diabetes. Sister(s) Family Medical History: Cancer Additional Family Medical History / Comment(s): Lungs cancer. General Exam Limitations: no limitations General appearance: alert, in no apparent distress Head exam: Present: normocephalic Eye exam: Present: normal appearance Respiratory exam: Present: normal lung sounds bilaterally Cardiovascular Exam: Present: regular rate, normal rhythm Expanded Peripheral pulses: 2+: Dorsalis Pedis (R), Dorsalis Pedis (L) GI/Abdominal exam: Present: soft, normal bowel sounds. Absent: distended, tenderness, guarding, rebound, rigid, pulsatile mass Extremities exam: Present: normal inspection Neurological exam: Present: alert Psychiatric exam: Present: normal affect, normal mood Skin exam: Present: normal color Course Vital Signs 10/07/22 10/07/22 10/07/22 12:00 13:06 14:01 Temperature 97.9 F 97.8 F 97.6 F Pulse Rate 75 72 80 Respiratory 18 16 18 Rate Blood Pressure 142/63 130/64 137/67 O2 Sat by Pulse 98 95 95 Oximetry Medical Decision Making - Medical Decision Making Was pt. sent in by a medical professional or institution (, PA, [facility], urgent care, hospital, or [facility]...) When possible be specific @ -No Did you speak to anyone other than the patient for history (EMS, parent, family, police, friend...)? What history was obtained from this source @ - is present and helps provide history including recent visit. Did you review nursing and triage notes (agree or disagree)? Why? @ -I reviewed and agree with nursing and triage notes Were old charts reviewed (outside hosp., previous admission, EMS record, old EKG, old radiological studies, urgent care reports/EKG's, [facility] records)? Report findings @ -Year to previous ER visit and CT and labs from [facility] Differential Diagnosis (chest pain, altered mental status, abdominal pain women, abdominal pain men, vaginal bleeding, weakness, fever, dyspnea, syncope, headache, dizziness, GI bleed, back pain, seizure, CVA, palpatations, mental health)? @ -Differential Abdominal Pain Women: Appendicitis, Cholecystitis, diverticulosis, ischemic bowel, pancreatitis, hepatitis, UTI, gastroenteritis, AAA, incarcerated hernia, bowel obstruction, constipation, inflammatory bowel, hepatitis, peptic ulcer disease, splenic infarction, perforated viscus, vulvitis, ovarian torsion, PID, kidney stone, placenta abruption, this is not meant to be an all-inclusive list EKG interpreted by me (3pts min.). @ -As above X-rays interpreted by me (1pt min.). @ -KUB shows nonobstructive pattern. CT interpreted by me (1pt min.). @ -None done U/S interpreted by me (1pt. min.). @ -None done What testing was considered but not performed or refused? (CT, X-rays, U/S, labs )? Why? @ -None What meds were considered but not given or refused? Why? @ -None Did you discuss the management of the patient with other professionals (professionals i.e. , PA, [employer], lab, RT, psych nurse, rn social services, specialty person, teacher, sanitation officer, caser)? Give summary @ -Case was discussed with Dr. Swan who agrees with discharge of patient and will follow-up in the office, as soon as tomorrow. Was smoking cessation discussed for >3mins.? @ -No Was critical care preformed (if so, how long)? @ -No Were there social determinants of health that impacted care today? How? (Homelessness, low income, unemployed, alcoholism, drug addiction, transportation, low edu. Level, literacy, decrease access to med. care, longterm, rehab)? @ -No Was there de-escalation of care discussed even if they declined (Discuss DNR or withdrawal of care, Hospice)? DNR status @ -No What co-morbidities impacted this encounter? (DM, HTN, Smoking, COPD, CAD, Cancer, CVA, ARF, Chemo, Hep., AIDS, mental health diagnosis, sleep apnea, morbid obesity)? @ -None Was patient admitted / discharged? Hospital course, mention meds given and route, prescriptions, significant lab abnormalities, going to OR and other pertinent info. @ -Patient reevaluated and symptom-free following Reglan and Toradol. Patient and family are updated on results and plan. Undiagnosed new problem with uncertain prognosis? @ -No Drug Therapy requiring intensive monitoring for toxicity (Heparin, Nitro, Insulin, Cardizem)? @ -No Were any procedures done? @ -No Diagnosis/symptom? @ -Ureterolithiasis Acute, or Chronic, or Acute on Chronic? @ -Acute Uncomplicated (without systemic symptoms) or Complicated (systemic symptoms)? @ -default Side effects of treatment? @ -No Exacerbation, Progression, or Severe Exacerbation? @ -No Poses a threat to life or bodily function? How? (Chest pain, [place], [place], pneumonia, PE, COPD, DKA, ARF, appy, cholecystitis, CVA, Diverticulitis, Homicidal, Suicid al, threat to staff... and all critical care pts) @ -No - Lab Data Result diagrams: 10/07/22 12:41 10/07/22 12:41 Lab Results 10/07/22 10/07/22 10/07/22 Range/Units 12:41 12:41 12:41 WBC 11.6 H (3.8-10.6) k/uL RBC 4.42 (3.80-5.40) m/uL Hgb 13.8 (11.4-16.0) gm/dL Hct 41.3 (34.0-46.0) % MCV 93.3 (80.0-100.0) fL MCH 31.1 (25.0-35.0) pg MCHC 33.3 (31.0-37.0) g/dL RDW 13.1 (11.5-15.5) % Plt Count 237 (150-450) k/uL MPV 8.0 Neutrophils % 82 % Lymphocytes % 10 % Monocytes % 6 % Eosinophils % 1 % Basophils % 0 % Neutrophils # 9.4 H (1.3-7.7) k/uL Lymphocytes # 1.1 (1.0-4.8) k/uL Monocytes # 0.6 (0-1.0) k/uL Eosinophils # 0.1 (0-0.7) k/uL Basophils # 0.0 (0-0.2) k/uL PT 10.0 (9.0-12.0) sec INR 0.9 (<1.2) APTT 22.4 (22.0-30.0) sec Sodium (137-145) mmol/L Potassium (3.5-5.1) mmol/L Chloride (98-107) mmol/L Carbon Dioxide (22-30) mmol/L Anion Gap mmol/L BUN (7-17) mg/dL Creatinine (0.52-1.04) mg/dL Est GFR (CKD-EPI)AfAm (>60 ml/min/1.73 sqM) Est GFR (CKD-EPI)NonAf (>60 ml/min/1.73 sqM) Glucose (74-99) mg/dL Calcium (8.4-10.2) mg/dL Total Bilirubin (0.2-1.3) mg/dL AST (14-36) U/L ALT (4-34) U/L Alkaline Phosphatase (38-126) U/L Total Protein (6.3-8.2) g/dL Albumin (3.5-5.0) g/dL Urine Color Yellow Urine Appearance Cloudy H (Clear) Urine pH 5.5 (5.0-8.0) Ur Specific [employer] 1.026 (1.001-1.035) Urine Protein Trace H (Negative) Urine Glucose (UA) Negative (Negative) Urine Ketones Negative (Negative) Urine Blood Moderate H (Negative) Urine Nitrite Negative (Negative) Urine Bilirubin Negative (Negative) Urine Urobilinogen <2.0 (<2.0) mg/dL Ur Leukocyte Esterase Trace H (Negative) Urine RBC 128 H (0-5) /hpf Urine WBC 6 H (0-5) /hpf Ur Squamous Epith Cells 5 H (0-4) /hpf Urine Mucus Few H (None) /hpf 10/07/22 Range/Units 12:41 WBC (3.8-10.6) k/uL RBC (3.80-5.40) m/uL Hgb (11.4-16.0) gm/dL Hct (34.0-46.0) % MCV (80.0-100.0) fL MCH (25.0-35.0) pg MCHC (31.0-37.0) g/dL RDW (11.5-15.5) % Plt Count (150-450) k/uL MPV Neutrophils % % Lymphocytes % % Monocytes % % Eosinophils % % Basophils % % Neutrophils # (1.3-7.7) k/uL Lymphocytes # (1.0-4.8) k/uL Monocytes # (0-1.0) k/uL Eosinophils # (0-0.7) k/uL Basophils # (0-0.2) k/uL PT (9.0-12.0) sec INR (<1.2) APTT (22.0-30.0) sec Sodium 138 (137-145) mmol/L Potassium 4.4 (3.5-5.1) mmol/L Chloride 105 (98-107) mmol/L Carbon Dioxide 24 (22-30) mmol/L Anion Gap 9 mmol/L BUN 20 H (7-17) mg/dL Creatinine 0.71 (0.52-1.04) mg/dL Est GFR (CKD-EPI)AfAm >90 (>60 ml/min/1.73 sqM) Est GFR (CKD-EPI)NonAf 89 (>60 ml/min/1.73 sqM) Glucose 125 H (74-99) mg/dL Calcium 9.0 (8.4-10.2) mg/dL Total Bilirubin 1.1 (0.2-1.3) mg/dL AST 26 (14-36) U/L ALT 22 (4-34) U/L Alkaline Phosphatase 84 (38-126) U/L Total Protein 7.3 (6.3-8.2) g/dL Albumin 4.4 (3.5-5.0) g/dL Urine Color Urine Appearance (Clear) Urine pH (5.0-8.0) Ur Specific [employer] [place] [employer] (1.001-1.035) Urine Protein (Negative) Urine Glucose (UA) (Negative) Urine Ketones (Negative) Urine Blood (Negative) Urine Nitrite (Negative) Urine Bilirubin (Negative) Urine Urobilinogen (<2.0) mg/dL Ur Leukocyte Esterase (Negative) Urine RBC (0-5) /hpf Urine WBC (0-5) /hpf Ur Squamous Epith Cells (0-4) /hpf Urine Mucus (None) /hpf Disposition Clinical Impression: Ureterolithiasis Disposition: HOME SELF-CARE Condition: Stable Instructions (If sedation given, give patient instructions): Kidney Stones (ED) Additional Instructions: Please follow-up with urology tomorrow, number provided. Return for fever, uncontrolled vomiting, pain, worsening symptoms or any other concerns. Is patient prescribed a controlled substance at d/c from ED?: No Referrals: Emmanuel Ovalle DO [Primary Care Provider] - 1-2 days Martínez Martínez MD [STAFF PHYSICIAN] - 1-2 days Time of Disposition: 14:17
[2022-10-07] MEDS ORDERED: KETOROLAC 15 MG/ML 1 ML VIAL IVP STA (12:57)
[2022-10-07 13:03] LABS: Basophils % (A) 0 %; Eosinophils # (A) 0.1 k/uL (0-0.7); Eosinophils % (A) 1 %; HCT 41.3 % (34.0-46.0); HGB 13.8 gm/dL (11.4-16.0); Lymphocytes # (A) 1.1 k/uL (1.0-4.8); Lymphocytes % (A) 10 %; MCH 31.1 pg (25.0-35.0); MCHC 33.3 g/dL (31.0-37.0); MCV 93.3 fL (80.0-100.0); Monocytes # (A) 0.6 k/uL (0-1.0); Monocytes % (A) 6 %; Neutrophils # (A) 9.4 k/uL (1.3-7.7); Neutrophils % (A) 82 %; Platelet Count 237 k/uL (150-450); RBC 4.42 m/uL (3.80-5.40); RDW 13.1 % (11.5-15.5); WBC 11.6 k/uL (3.8-10.6)
[2022-10-07 13:16] LABS: ALT 22 U/L (4-34); AST 26 U/L (14-36); African American GFR (CKD) >90 (>60 ml/min/1.73 sqM); Albumin 4.4 g/dL (3.5-5.0); Alkaline Phosphatase 84 U/L (38-126); Anion Gap 9 mmol/L; Blood Urea Nitrogen 20 mg/dL (7-17); Carbon Dioxide 24 mmol/L (22-30); Chloride 105 mmol/L (98-107); Glucose 125 mg/dL (74-99); Non-African American GFR(CKD) 89 (>60 ml/min/1.73 sqM); Potassium 4.4 mmol/L (3.5-5.1); Sodium 138 mmol/L (137-145); Total Bilirubin 1.1 mg/dL (0.2-1.3); Total Protein 7.3 g/dL (6.3-8.2)
[2022-10-07 13:19] LABS: INR 0.9 (<1.2); Partial Thromboplastin Time 22.4 sec (22.0-30.0)
[2022-10-07 13:35] LABS: Appearance,Urine Cloudy (Clear); Bilirubin,Urine Negative (Negative); Blood,Urine Moderate (Negative); Color,Urine Yellow; Glucose,Urine (UA) Negative (Negative); Ketones,Urine Negative (Negative); Leukocyte Esterase,Urine Trace (Negative); Mucus,Urine Few /hpf; Nitrite,Urine Negative (Negative); PH, Urine 5.5 (5.0-8.0); Protein,Urine Trace (Negative); RBC,Urine 128 /hpf (0-5); Specific Gravity,Urine 1.026 (1.001-1.035); Squamous Epithelial Cell,Urine 5 /hpf (0-4); Urobilinogen,Urine <2.0 mg/dL (<2.0); WBC,Urine 6 /hpf (0-5)
--- NOTE | 2022-10-07 14:40 | XR ---
EXAMINATION TYPE: XR KUB DATE OF EXAM: 10/07/2022 COMPARISON: 05/09/2022 HISTORY: Abdomen pain right renal stone TECHNIQUE: AP upright abdomen FINDINGS: Cholecystectomy clips are in the right upper quadrant. No free air is identified. There is elevation of the right diaphragm. Psoas margins are normal. Organomegaly is not evident. No suspiciou s renal stones are evident. Nonspecific bowel gas is present. IMPRESSION: 1. No suspicious renal stones
[2022-10-07 15:13] VITALS: BP 140/75; PULSE 74; RESP 17; TEMP 97.7
== END 2022-10-07 15:13 | disposition home or self-care (01) ==
LOC: EC 11:34
DX: N20.1 Calculus of ureter (principal); I10 Essential (primary) hypertension; E78.5 Hyperlipidemia, unspecified; E03.9 Hypothyroidism, unspecified; Z79.82 Long term (current) use of aspirin; Z79.890 Hormone replacement therapy; Z79.899 Other long term (current) drug therapy; Z88.6 Allergy status to analgesic agent
CPT/HCPCS: 36415; 80053; 85025; 85610; 85730; 81001; 74018; 99284; 96374; 96375; 96361 ×2; J2765; J1885

== ENCOUNTER 2022-10-09 14:10 | Day surgery (SDC) | payer MEDICARE, BC ==
[2022-10-08 13:20] VITALS: BMI 32.5
--- NOTE | 2022-10-09 06:58 | P.GSHP ---
History of Present Illness H&P Date: 10/09/22 Chief Complaint: Right flank pain The patient is a 67-year-old white female with a history of urolithiasis. Several days ago she developed acute onset of sharp right flank pain associated with nausea. Her symptoms have been intractable since that time. CT scan shows mild right hydronephrosis due to a 4 x 9 mm right distal ureteral calculus near the ureterovesical junction. The CT scan also shows bilateral small renal calculi. Due to intractable symptoms she has elected to undergo ureteroscopic removal of the UVJ calculus. - Constitutional Constitutional: Denies chills, Denies fever - Gastrointestinal Gastrointestinal: Reports nausea - Genitourinary (Female) Genitourinary: Reports flank pain, Reports kidney stones Past Medical History Past Medical History: Cancer, Hyperlipidemia, Hypertension, Thyroid Disorder Additional Past Medical History / Comment(s): Melanoma. Jon disease resulting in hypothyroidism, parathyroid tumors, seasonal allergies and kidney stones. Osteopenia. History of Any Multi-Drug Resistant Organisms: None Reported Past Surgical History: Breast Surgery, Cholecystectomy, Hysterectomy, Orthopedic Surgery Additional Past Surgical History / Comment(s): Melanoma removed. Rolle's neuroma surgery 2006. Cervical fusion. Past Anesthesia/Blood Transfusion Reactions: Postoperative Nausea & Vomiting (PONV) Past Psychological History: No Psychological Hx Reported Smoking Status: Never smoker Past Alcohol Use History: None Reported Past Drug Use History: None Reported - Past Family History Father Family Medical History: Cancer Additional Family Medical History / Comment(s): Lung cancer. Sister(s) Family Medical History: Cancer Additional Family Medical History / Comment(s): Lungs cancer. Medications and Allergies Home Medications Medication Instructions Recorded Confirmed Type Aspirin 81 mg PO DAILY 03/19/18 10/08/22 History Calcium Carbonate [Calcium] 600 mg PO DAILY 03/19/18 10/08/22 History Cholecalciferol (Vitamin D3) 5,000 units PO DAILY 03/19/18 10/08/22 History [Vitamin D3] Levothyroxine Sodium [Synthroid] 50 mcg PO DAILY 03/19/18 10/08/22 History Pravastatin Sodium [Pravachol] 20 mg PO DAILY 03/19/18 10/08/22 History L.acidoph,Paracasei, B.lactis 1 cap PO DAILY 06/19/22 10/08/22 History [Probiotic] Losartan Potassium [Cozaar] 50 mg PO DAILY 06/19/22 10/08/22 History Nf-Plexus Biocleanse 1 tab PO DAILY 10/08/22 10/08/22 History Nf-Plexus Plant Based Lostant 3 1 tab PO DAILY 10/08/22 10/08/22 History Allergies Allergy/AdvReac Type Severity Reaction Status Date / Time codeine AdvReac Severe vomit Verified 10/08/22 13:08 Surgical - Exam - General well developed, well nourished, no distress - Respiratory normal respiratory effort - Psychiatric oriented to time, oriented to person, oriented to place, speech is normal, memory intact Results - Imaging Abdominal x-ray: report reviewed, image reviewed CT scan - abdomen: report reviewed, image reviewed Assessment and Plan (1) Ureterolithiasis Status: Acute Code(s): N20.1 - CALCULUS OF URETER SNOMED Code(s): 04556063 (2) Hydronephrosis with renal and ureteral calculous obstruction Status: Acute Code(s): N13.2 - HYDRONEPHROSIS WITH RENAL AND URETERAL CALCULOUS OBSTRUCTION SNOMED Code(s): 787993107 Plan: Cystoscopy, right ureteroscopy with Holmium laser lithotripsy and stone basketing, possible right ureteral stent insertion. Potential risks include anesthesia, ureteral injury, infection, and inability to successfully remove the calculus. She may require a ureteral stent postoperatively.
[2022-10-09] MEDS ORDERED: LACTATED RINGERS 1,000 ML IV ONE (14:54)
[2022-10-09] MEDS ORDERED: ONDANSETRON 4 MG/2 ML VIAL ONE (15:00)
[2022-10-09] MEDS ORDERED: ONDANSETRON 4 MG/2 ML VIAL IVP ONE ×2 (15:05)
[2022-10-09] MEDS ORDERED: DEXAMETHASONE SOD PHOSPHATE 4 MG/ML 1 ML VIAL IVP ONE ×2 (15:06)
--- NOTE | 2022-10-09 15:06 | XR ---
EXAMINATION TYPE: XR KUB DATE OF EXAM: 10/09/2022 COMPARISON: 10/07/2022 HISTORY: Preop for right kidney stone TECHNIQUE: One view abdominal series FINDINGS: The osseous structures are intact. The bowel gas pattern is nonspecific. Surgical clips in the gallb ladder fossa. There is a punctate 2 mm right renal calculus. Retained fecal debris throughout the col on correlate for constipation. There is arthropathy of the hips and there are 3 calcifications measuring about 5 mm or less within t he pelvis appear stable relative to prior exam. IMPRESSION: 1. Nonspecific abdomen. Punctate 2 mm right renal calculus with possible distal ureteral UVJ calcifi cation measuring 3 to 4 mm unchanged in appearance from prior exam.
[2022-10-09] MEDS ORDERED: PHENYLEPHRINE-0.9% NACL SYG 1,000 MCG/10 ML SYRINGE ONE (16:44)
[2022-10-09] MEDS ORDERED: fentaNYL (PF) 50 MCG/ML 2 ML AMP ONE (16:44)
[2022-10-09] MEDS ORDERED: MIDAZOLAM 2 MG/2 ML VIAL ONE (16:44)
[2022-10-09] MEDS ORDERED: LIDOCAINE 2% INJ 20 MG/ML (2 ML VIAL) ONE (16:44)
[2022-10-09] MEDS ORDERED: PROPOFOL 10 MG/ML 20 ML VIAL IV ONE (16:44)
[2022-10-09 18:08] VITALS: TEMP 97.1
--- NOTE | 2022-10-09 18:09 | P.OP ---
Date of Procedure: 10/09/22 Preoperative Diagnosis: Right ureteral calculus Postoperative Diagnosis: Same Procedure(s) Performed: Cystoscopy, right ureteroscopy with Holmium laser lithotripsy and stone basketing Anesthesia: BRIGITTE Surgeon: Collin Cramer Estimated Blood Loss (ml): 5 IV fluids (ml): 450 Pathology: other (Calculus fragments, sent for chemical analysis) Condition: stable Indications for Procedure: The patient is a 67-year-old white female with a history of urolithiasis. Several days ago she developed acute onset of sharp right flank pain associated with nausea. Her symptoms have been intractable since that time. CT scan shows mild right hydronephrosis due to a 4 x 9 mm right distal ureteral calculus near the ureterovesical junction. The CT scan also shows bilateral small renal calculi. Due to intractable symptoms she has elected to undergo ureteroscopic removal of the UVJ calculus. Operative Findings: Right UVJ calculus, fragmented and removed completely. Description of Procedure: The patient was taken to the operating room and placed in the dorsolithotomy position, with legs supported in Gaston stirrups. The external genitalia was prepped and draped sterilely. The 30 lens was used to introduce the 21-[place] Gonzalez cystoscopic sheath through the urethra and into the bladder under direct vision. The bladder was examined in its entirety. Both ureteral orifices were normal anatomic location and configuration, and clear urine effluxed from both. No tumors were seen. A calculus was seen within the intramural portion of the right distal ureter. The Gonzalez semirigid ureteroscope was advanced into the bladder, and the right ureteral orifice was cannulated. The 365 micron Holmium laser probe was passed through the ureteroscope, and lithotripsy was performed. The calculus was fragmented, and the majority of the calculus fragments passed distally into the bladder. The calculus fragments which remained within the ureter were removed using the stone basket. Final inspection of the ureter showed no residual calculus fragments, no evidence of ureteral perforation. No significant edema of the UVJ was noted, so a ureteral stent was not placed. The ureteroscope was removed, and the cystoscope was replaced into the bladder. The bladder was emptied, removing the calculus fragments, and the cystoscope removed. The patient tolerated the procedure well and was taken to the recovery room in stable condition. ivWatch Report: Procedure Acuity: Urgent Stone Size and Location: 4 x 9 mm, right UVJ Ureteral Dilation: No Ureteral Access Sheath Used: No Stone Sent for Analysis: Yes All Stones/Fragments Were Removed with a Basket: Yes Complications: No Preoperative Antibiotics Given: Yes Stent Placed: No Discharge Medications: Toradol
[2022-10-09 18:53] VITALS: RESP 20
[2022-10-09 19:06] VITALS: BP 132/59; PULSE 69
== END 2022-10-09 19:28 | disposition home or self-care (01) ==
LOC: OR 14:10
PROVIDERS: ATTEND Urology
DX: N13.2 Hydronephrosis with renal and ureteral calculous obstruction (principal); Z87.440 Personal history of urinary (tract) infections; I10 Essential (primary) hypertension; E78.5 Hyperlipidemia, unspecified; E06.3 Autoimmune thyroiditis; Z85.850 Personal history of malignant neoplasm of thyroid; Z79.890 Hormone replacement therapy; Z79.899 Other long term (current) drug therapy; Z85.820 Personal history of malignant melanoma of skin; M85.80 Other specified disorders of bone density and structure, unspecified site; Z79.82 Long term (current) use of aspirin; Z88.5 Allergy status to narcotic agent
CPT/HCPCS: 82365; 74018; 52353; C1894; J2250; J1100; J0690; J2405; J3010; J2370; J2704; J2001

== ENCOUNTER → 2022-10-30 | Outpatient (CLI) | payer MEDICARE, BC ==
--- NOTE | 2022-10-30 13:06 | XR ---
EXAMINATION TYPE: XR KUB DATE OF EXAM: 10/30/2022 COMPARISON: 10/09/2022 HISTORY: Pain TECHNIQUE: One view abdominal series FINDINGS: The osseous structures are intact. The bowel gas pattern is nonspecific. Lung bases are clear. Calc ifications in the pelvis suggests a vascular phleboliths. Right kidney: There are 2 punctate 1 to 2 mm mid to lower pole right renal calculi stable. Left kidney: No definite suspicious calcifications. IMPRESSION: 1. There are two punctate 1 to 2 mm right renal calculi. 2. Previously suspected distal right ureteral calculus is no longer seen and likely represents interv al passage of calculus.
== END | disposition home or self-care (01) ==
LOC: RADXRMAIN 12:45
PROVIDERS: ATTEND Urology
DX: N13.2 Hydronephrosis with renal and ureteral calculous obstruction (principal)
CPT/HCPCS: 74018

== ENCOUNTER → 2022-10-30 | Outpatient (CLI) | payer MEDICARE, BC ==
--- NOTE | 2022-10-30 18:15 | US ---
EXAMINATION TYPE: US kidneys/renal and bladder DATE OF EXAM: 10/30/2022 COMPARISON: KUB radiograph 10/30/2022 CLINICAL INDICATION: Female, 67 years old with history of N13.2 RENAL AND URETERAL CALCULOUS; h/o sto gabriele, recently passed a few EXAM MEASUREMENTS: Right Kidney: 10.1 x 5.2 x 6.3 cm Left Kidney: 11.3 x 4.8 x 5.7 cm Right Kidney: tiny echogenic foci may represent small stones Left Kidney: No hydronephrosis or masses seen Bladder: wnl There is no evidence for hydronephrosis at this point in time. Tiny echogenic foci which correspond t o 2 punctate renal calculi on today's KUB. No left renal calculi definitively identified. No masses a re identified. The urinary bladder is anechoic but underdistended. IMPRESSION: 1. No hydronephrosis. 2. Nonobstructive right renal calculi correspond to today's KUB.
== END | disposition home or self-care (01) ==
LOC: RADUSWWP 16:14
PROVIDERS: ATTEND Urology
DX: N13.2 Hydronephrosis with renal and ureteral calculous obstruction (principal); Z87.442 Personal history of urinary calculi
CPT/HCPCS: 76770

== ENCOUNTER → 2023-06-20 | Outpatient (CLI) | payer BC, MEDICARE ==
--- NOTE | 2023-06-21 19:19 | MM ---
Reason for Exam: Screening (asymptomatic). Last mammogram was performed 1 year(s) and 1 month(s) ago. Patient History: Menarche at age 15. First Full-Term at age 18. Hysterectomy at age 41. Postmenopausal. 10/08/2009, Bilateral Reduction. Maternal cousin (stefaon) had breast cancer, age 38. Maternal grandmother had breast cancer at or over age 50. Risk Values: Casandra 5 year model risk: 1.1%. NCI Lifetime model risk: 3.8%. Prior Study Comparison: 03/08/2015 Bilateral Screening Mammogram, Unknown. 03/12/2016 Bilateral Screening Mammogram, Unknown. 03/16/2016 Bilateral Screening Mammogram, Unknown. 04/18/2021 Bilateral Screening Mammogram, Unknown. 05/25/2022 Bilateral Screening Mammogram, Unknown. Tissue Density: The breast tissue is almost entirely fat. Findings: Analyzed By CAD. Chronic nodularity on the left. There is no suspicious group of microcalcifications or new suspicious mass in either breast. Overall Assessment: Benign, BI-RAD 2 Management: Screening Mammogram of both breasts in 1 year. . Patient should continue monthly self-breast exams. A clinical breast exam by your physician is recommended on an annual basis. This exam should not preclude additional follow-up of suspicious palpable abnormalities. Note on Casandra scores and lifetime risk: 1. A Casandra score greater than 3% is considered moderate risk. If this is the case, consider specialist referral to assess eligibility for a risk reducing agent. 2. If overall lifetime risk for the development of breast cancer is 20% or higher, the patient may qualify for future screening with alternating mammogram and breast MRI. Electronically signed and approved by: Sanjeev Diaz M.D. Radiologist
== END | disposition home or self-care (01) ==
LOC: RADMAMWWP 14:11
PROVIDERS: ATTEND Obstetrics & Gynecology
DX: Z12.31 Encounter for screening mammogram for malignant neoplasm of breast (principal); Z80.3 Family history of malignant neoplasm of breast; Z78.0 Asymptomatic menopausal state
CPT/HCPCS: 77063; 77067

== ENCOUNTER → 2023-06-25 | Outpatient (CLI) | payer MEDICARE ==
[2023-06-25 13:09] VITALS: BP 120/76; PULSE 91; RESP 16; TEMP 97.8
--- NOTE | 2023-06-25 13:23 | P.HPOB ---
History of Present Illness H&P Date: 06/25/23 Chief Complaint: The patient is here for her routine gynecologic exam. This is a 68-year-old with an LMP of 1997. The patient is status post vaginal hysterectomy for benign reasons. She has a known rectocele. She states she occasionally has to push into the vagina to pass a large stool. She is otherwise without gynecologic complaints. Review of Systems The patient has lost 3 pounds over the last year. She denies respiratory, cardiac, or G.I. problems. Past Medical History Past Medical History: Cancer, Hyperlipidemia, Hypertension, Thyroid Disorder Additional Past Medical History / Comment(s): Melanoma. Jon disease resulting in hypothyroidism, parathyroid tumors, seasonal allergies and kidney stones. Osteopenia. 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 History of Any Multi-Drug Resistant Organisms: None Reported Past Surgical History: Breast Surgery, Cholecystectomy, Hysterectomy, Orthopedic Surgery Additional Past Surgical History / Comment(s): Melanoma removed. Rolle's neuroma surgery 2006. Cervical fusion. Left eye surgery. Cystoscopic kidney stone removal. 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 - Past Family History Father Family Medical History: Cancer Additional Family Medical History / Comment(s): Lung cancer. Sister(s) Family Medical History: Cancer Additional Family Medical History / Comment(s): Lungs cancer. Medications and Allergies Home Medications Medication Instructions Recorded Confirmed Type Aspirin 81 mg PO DAILY 03/19/18 06/25/23 History Calcium Carbonate [Calcium] 600 mg PO DAILY 03/19/18 06/25/23 History Cholecalciferol (Vitamin D3) 5,000 units PO DAILY 03/19/18 06/25/23 History [Vitamin D3] Levothyroxine Sodium [Synthroid] 50 mcg PO DAILY 03/19/18 06/25/23 History Pravastatin Sodium [Pravachol] 20 mg PO DAILY 03/19/18 06/25/23 History L.acidoph,Paracasei, B.lactis 1 cap PO DAILY 06/19/22 06/25/23 History [Probiotic] Losartan Potassium [Cozaar] 50 mg PO DAILY 06/19/22 06/25/23 History Nf-Plexus Biocleanse 1 tab PO DAILY 10/08/22 06/25/23 History Nf-Plexus Plant Based [place] 3 1 tab PO DAILY 10/08/22 06/25/23 History Allergies Allergy/AdvReac Type Severity Reaction Status Date / Time codeine AdvReac Severe vomit Verified 06/25/23 12:49 Exam Vital Signs Temp Pulse Resp BP Pulse Ox 06/25/23 12:51 97.8 F 91 16 120/76 98 Intake and Output 06/24/23 06/25/23 06/25/23 22:59 06:59 14:59 Other: Weight 91.172 kg 5 feet 3 inches, weight 201 pounds, BMI 35.6. This is a well-developed well-nourished white female who is alert and oriented times 3 in no acute distress. HEENT: Within normal limits. NECK: Supple without mass or thyromegaly. CHEST AND LUNGS: Clear to auscultation. HEART: Regular rate and rhythm. BREASTS: Are without mass or discharge. AXILLARY EXAM: Negative for adenopathy. BACK: Negative for CVA tenderness. ABDOMEN: Soft, nontender, without palpable masses. PELVIC EXAM: External genitalia appears normal with mild atrophy. Vagina appears normal with mild atrophy. There is a stable grade 2 rectocele no significant scale. Bimanual examination is negative for mass or tenderness. RECTAL EXAM: Rectovaginal exam is negative for mass or tenderness and is negative for occult blood. EXTREMITIES: Nontender. IMPRESSION: 1. 68-year-old menopausal female status post vaginal hysterectomy for benign reasons, with stable minimally symptomatic and grade 2 rectocele. 2. History of osteopenia. PLAN: 1. Pap smears have been discontinued. 2. Self breast awareness was discussed with the patient. We have also discussed symptoms associated with inflammatory breast cancer. 3. Screening mammogram was done on 06/20/2023 and was benign. 4. Osteoporosis prevention was discussed. She will continue to do bone density testing through her automation qa analyst, as she has done in the past. 5. Continue conservative management for the rectocele. 6. The patient was advised to return in 1-2 years for her well woman examination and as needed.
== END ==
LOC: WWCWWP 12:44
PROVIDERS: ATTEND Obstetrics & Gynecology
DX: Z53.9 Procedure and treatment not carried out, unspecified reason (principal)

== ENCOUNTER → 2023-09-11 | Outpatient (CLI) | payer MEDICARE ==
[2023-09-11 11:16] VITALS: BP 138/78; PULSE 69; RESP 18; TEMP 98.6
--- NOTE | 2023-09-11 11:24 | P.PN ---
Subjective DATE: 09/11/2023 FOLLOW UP VISIT. Patient with obstructive sleep apnea hypopnea syndrome return to sleep center for follow-up visit. Information from previous visit have been reviewed. Patient is using PAP equipment every night for the whole night, getting PAP supplies in time. The patient does not have significant problems with the mask, PAP unit and humidification. [place] sleepiness scale is 4, which is normal. I checked information from PAP unit. PAP unit pressure 8-12, average 11.7 cm H2O. Usage is 97% for more then 4 hours, average 7.25 hours per night. Leak is significantly increased to 44.6 l/m. Apnea Hypopnea Index is 1.5, which is normal. MEDICATIONS:1. Losartan 50 mg once a day 2. Levothyroxine 50 mcg once a day 3. Pravastatin 20 mg once a day During physical exam: GENERAL: A pleasant patient without any distress. VITAL SIGNS: Please see below. HEENT: PERRLA, EOMI.low position of soft palate, Mallapati[] . NECK: Supple. No JVD. LUNGS: Clear to percussion and to auscultation. Good air exchange. No wheezing or rhonchi. HEART: S1, S2 regular. ABDOMEN: Soft and nontender.[] EXTREMITIES: No clubbing or cyanosis. 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 No focal deficit. Impressions: 1. Obstructive sleep apnea-hypopnea syndrome. Patient demonstrated great compliance with treatment, benefiting from treatment. 2. Obesity, patient lost 4 pounds comparing with previous visit. 3. Hypertension. 4. Hyperlipidemia. 5. Hypothyroidism with history of Jon thyroiditis. 6. Seasonal allergy. 7. History of allergic asthma. 8. Status post surgical treatment for melanoma of left leg. 9. History of parathyroid tumor. 10. History of sinusitis problems. Plan: 1. Continue using PAP equipment every night for the whole night. 2. To change air filter at least 1-2 times per month. 3. PAP unit should stay lower then position of the head. 4. Advised patient to remove all remaining water from humidifier canister daily and make it dry after each usage. Refill canister with fresh distilled water before each usage. 5. Sleep hygiene with regular time in bed for at least 8 hours. 6. Precautions related to driving. No driving if feel any sleepiness. 7. I will maintain prescription for PAP supplies including mask, tube, filters. 8. Follow up visit in 6 months or earlier if patient has any problems. 9. Watching and continue losing weight. Thank you very much for allowing me to participate in the management of your patient. Daniel Noel MD, PhD, FAASM. Diplomat of [place] [employer], Sleep Medicine Board by [place] [employer] [facility] [place] Objective - Vital Signs Vital signs: Vital Signs Temp 98.6 F 09/11/23 10:38 Pulse 69 09/11/23 10:38 Resp 18 09/11/23 10:38 BP 138/78 09/11/23 10:38 Pulse Ox 95 09/11/23 10:38 FiO2 Intake & Output 09/10/23 09/11/23 09/11/23 18:59 06:59 18:59 Weight 91.796 kg
== END ==
LOC: 3 N SLEEP 10:13
PROVIDERS: ATTEND Internal Medicine
DX: G47.33 Obstructive sleep apnea (adult) (pediatric) (principal); E66.9 Obesity, unspecified; I10 Essential (primary) hypertension; E78.5 Hyperlipidemia, unspecified; E03.9 Hypothyroidism, unspecified; Z91.09 Other allergy status, other than to drugs and biological substances; Z85.820 Personal history of malignant melanoma of skin; Z87.09 Personal history of other diseases of the respiratory system; Z85.850 Personal history of malignant neoplasm of thyroid; Z86.39 Personal history of other endocrine, nutritional and metabolic disease; Z99.89 Dependence on other enabling machines and devices; Z79.899 Other long term (current) drug therapy; Z79.890 Hormone replacement therapy; Z88.5 Allergy status to narcotic agent; Z68.35 Body mass index [BMI] 35.0-35.9, adult
CPT/HCPCS: 99212

== ENCOUNTER → 2024-01-24 | Outpatient (CLI) | payer MEDICARE ==
--- NOTE | 2024-01-24 12:21 | XR ---
EXAMINATION TYPE: XR KUB DATE OF EXAM: 01/24/2024 11:10 AM CLINICAL INDICATION: Female, 68 years old with history of N20.0 Calculus kidney; [facility] COMPARISON: 10/30/2022 TECHNIQUE: One radiographic view of the abdomen was obtained. FINDINGS: The bowel gas pattern is nonspecific without dilated loops of small or large bowel. . Fecal material and gas are demonstrated throughout the colon and rectum. There is no evidence for organomegaly or pneumoperitoneum. The osseous structures are intact. Left renal calculi measuring up to 3 mm. Right upper quadrant cholecystectomy clips. IMPRESSION: 1. No obstructing renal calculus. 2. Nonspecific bowel gas pattern without radiographic evidence for acute process.
== END | disposition home or self-care (01) ==
LOC: RADXRMAIN 10:54
PROVIDERS: ATTEND Urology
DX: N20.0 Calculus of kidney (principal)
CPT/HCPCS: 74018

== ENCOUNTER → 2024-06-30 | Outpatient (CLI) | payer MEDICARE ==
[2024-06-30 10:00] VITALS: BP 135/75; PULSE 80; RESP 16; TEMP 97.7
--- NOTE | 2024-06-30 10:28 | P.HPOB ---
History of Present Illness H&P Date: 06/30/24 Chief Complaint: The patient is here for her routine gynecologic exam and ma mmogram. This is a 69-year-old G2, P2 1997. She is a status post vaginal hysterectomy for benign reasons. She has a known rectocele. She occasionally has to push into the vagina to pass a large stool, but she denies any external prolapse. This does not cause her much problem. Review of Systems The patient's weight has been stable over the last year. She denies res piratory, cardiac, or G.I. problems. Past Medical History Past Medical History: Cancer, Hyperlipidemia, Hypertension, Thyroid Disorder Additional Past Medical History / Comment(s): Melanoma. Jon disease resulting in hypothyroidism, parathyroid tumors, seasonal allergies and kidney stones. Osteopenia. 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 History of Any Multi-Drug Resistant Organisms: None Reported Past Surgical History: Breast Surgery, Cholecystectomy, Hysterectomy, Orthopedic Surgery Additional Past Surgical History / Comment(s): Melanoma removed. Rolle's neuroma surgery 2006. Cervical fusion. Left eye surgery (torn retina - they p ut a buckle on it). Cystoscopic kidney stone removal. Past Anesthesia/Blood Transfusion Reactions: Postoperative Nausea & Vomiting (PONV) Past Psychological History: No Psychological Hx Reported Smoking Status: Never smoker Past Alcohol Use History: Occasional (2 Drinks per month.) Past Drug Use History: None Reported Additional History: She has been since 1973 and retired from the [employer] in February 2024. - Past Family History Father Family Medical History: Cancer Additional Family Medical History / Comment(s): Lung cancer. Sister(s) Family Medical History: Cancer Additional Family Medical History / Comment(s): Lungs cancer. Medications and Allergies Home Medications Medication Instructions Recorded Confirmed Type Aspirin 81 mg PO DAILY 03/19/18 06/25/23 History Calcium Carbonate [Calcium] 600 mg PO DAILY 03/19/18 06/30/24 History Levothyroxine Sodium [Synthroid] 50 mcg PO DAILY 03/19/18 06/30/24 History Pravastatin Sodium [Pravachol] 20 mg PO DAILY 03/19/18 06/30/24 History L.acidoph,Paracasei, B.lactis 1 cap PO DAILY 06/19/22 06/30/24 History [Probiotic] Losartan Potassium [Cozaar] 50 mg PO DAILY 06/19/22 06/30/24 History Nf-Plexus Biocleanse 1 tab PO DAILY 10/08/22 06/30/24 History Nf-Plexus Plant Based [place] 3 1 tab PO DAILY 10/08/22 06/30/24 History Aspirin [Adult Low Dose Aspirin EC] 81 mg PO DAILY 06/30/24 06/30/24 History Cholecalciferol (Vitd3)/Vit K2 1 each PO DAILY 06/30/24 06/30/24 History [Vit D3-Vit K2 125-100 Mcg Sfgl] Multivitamin [Multivitamins Adult 1 each PO DAILY 06/30/24 06/30/24 History Gummies] Allergies Allergy/AdvReac Type Severity Reaction Status Date / Time codeine AdvReac Severe vomit Verified 06/30/24 09:42 Exam Vital Signs Temp Pulse Resp BP 06/30/24 09:53 97.7 F 80 16 135/75 Intake and Output 06/29/24 06/30/24 06/30/24 22:59 06:59 14:59 Other: Weight 91.172 kg Height 5 feet 2-1/2 inches, weight 201 pounds, BMI 36.8. This is a well-developed well-nourished white female who is alert and oriented times 3 in no acute distress. HEENT: Within normal limits. NECK: Supple without mass or thyromegaly. CHEST AND LUNGS: Clear to auscultation. HEART: Regular rate and rhythm. BREASTS: Are without mass or discharge. There is a reddish skin lesion that the patient has pointed out at the 11 o'clock position of the left breast measuring approximately 8 mm in diameter. This is a benign appearing. She states she has had this for several months to years. AXILLARY EXAM: Negative for adenopathy. BACK: Negative for CVA tenderness. ABDOMEN: Soft, nontender, without palpable masses. PELVIC EXAM: External genitalia appears normal with mild atrophy. Vagina appears normal atrophy. There is a stable grade 2 rectocele. The vaginal cuff is well supported and there is no significant cystocele. Bimanual examination is negative for mass or tenderness. RECTAL EXAM: Rectovaginal exam is negative for mass or tenderness and is negative for occult blood. The rectovaginal exam does confirm a grade 2 rectocele. EXTREMITIES: Nontender. IMPRESSION: 1. 69-year-old menopausal female status post vaginal hysterectomy for benign reasons with a stable, minimally symptomatic grade 2 rectocele. 2. History of osteopenia followed by her medical records supervisor. 3. Benign appearing left breast lesion measuring approximately 8 mm. PLAN: 1. Pap smears have been discontinued. 2. Self breast awareness was discussed with the patient. We have also discussed symptoms associated with inflammatory breast cancer. She states she w ill let her electrical test technician see the left breast skin lesion she sees her for her regular dermatologic exam. 3. Screening mammogram will be done today. 4. Osteoporosis prevention was discussed. She has brought in her most recent bone density test done at [facility] dated 03/20/2024. This shows osteopenia with the spine T-score of -1.2 and femur scores that are within normal limits. 5. She was advised to return in one year for her annual well woman exam and as needed.
--- NOTE | 2024-06-30 11:03 | MM ---
Reason for Exam: Screening (asymptomatic). Last mammogram was performed 1 year(s) and 1 month(s) ago. Patient History: Menarche at age 15. First Full-Term at age 18. Hysterectomy at age 41. Postmenopausal. 10/08/2009, Bilateral Reduction. Maternal cousin (stefano) had breast cancer, age 38. Maternal grandmother had breast cancer at or over age 50. Risk Values: Casandra 5 year model risk: 1.1%. NCI Lifetime model risk: 3.7%. Prior Study Comparison: 04/18/2021 Bilateral Screening Mammogram, Unknown. 05/25/2022 Bilateral Screening Mammogram, Unknown. 06/20/2023 Bilateral MG 3D screening mammo w/cad, [facility]. Tissue Density: The breasts are almost entirely fatty. Findings: Analyzed By CAD. A few tiny under 5 mm round circumscribed mass bilaterally are redemonstrated and stable. There is no suspicious group of microcalcifications or new suspicious mass in either breast. Overall Assessment: Benign, BI-RAD 2 Management: Screening Mammogram of both breasts in 1 year. . Patient should continue monthly self-breast exams. A clinical breast exam by your physician is recommended on an annual basis. This exam should not preclude additional follow-up of suspicious palpable abnormalities. Note on Casandra scores and lifetime risk: 1. A Casandra score greater than 3% is considered moderate risk. If this is the case, consider specialist referral to assess eligibility for a risk reducing agent. 2. If overall lifetime risk for the development of breast cancer is 20% or higher, the patient may qualify for future screening with alternating mammogram and breast MRI. [facility], , 06/30/2024 11:00 AM. Electronically signed and approved by: Christiano Lauren M.D.
== END ==
LOC: WWCWWP 09:23
PROVIDERS: ATTEND Obstetrics & Gynecology
DX: Z12.31 Encounter for screening mammogram for malignant neoplasm of breast (principal); Z90.710 Acquired absence of both cervix and uterus; Z80.3 Family history of malignant neoplasm of breast; Z88.5 Allergy status to narcotic agent
CPT/HCPCS: 77063; 77067

== ENCOUNTER → 2024-09-09 | Outpatient (CLI) | payer MEDICARE ==
[2024-09-09 10:34] VITALS: BP 147/70; PULSE 65; RESP 20; TEMP 97.5
--- NOTE | 2024-09-09 11:03 | P.PROGSL ---
Subjective DATE: 09/09/2024 FOLLOW UP VISIT. Patient with obstructive sleep apnea hypopnea syndrome return to sleep center for follow-up visit. Information from previous visit have been reviewed. Patient is using PAP equipment every night for the whole night, getting PAP supplies in time. The patient does not have significant problems with the mask, PAP unit and humidification. [place] sleepiness scale is 6, which is normal. I checked information from PAP unit. PAP unit pressure 8-12, average 11.8 cm H2O. Usage is 90% for more then 4 hours, average 7.8 hours per night. Leak is increased to 39.9 l/m. Apnea Hypopnea Index is 1.4, which is normal. MEDICATIONS have been reviewed, please see below. During physical exam: GENERAL: A pleasant patient without any distress. VITAL SIGNS: Please see below, weight is 203.8 lbs. HEENT: PERRLA, EOMI.low position of soft palate, Mallapati 3. NECK: Supple. No JVD. LUNGS: Clear to percussion and to auscultation. Good air exchange. No wheezing or rhonchi. HEART: S1, S2 regular. ABDOMEN: Soft and nontender. Slightly obese EXTREMITIES: No clubbing or cyanosis. 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 No focal deficit. Impressions: 1. Obstructive sleep apnea-hypopnea syndrome. Patient demonstrated great compliance with treatment, benefiting from treatment. 2. Mild obesity, BMI 36.9. 3. Hypertension. 4. Hyperlipidemia. 5. Hypothyroidism with history of Jon thyroiditis. 6. Seasonal allergy. 7. History of allergic asthma. 8. History of parathyroid tumor. 9. History of sinus problems. 10. Status post surgical treatment for melanoma of left leg. Plan: 1. Continue using PAP equipment every night for the whole night. 2. Sleep hygiene with regular time in bed for at least 7.5-8 hours 3. PAP unit should stay lower then position of the head. 4. Advised patient to remove all remaining water from humidifier canister daily and make it dry after each usage. Refill canister with fresh distilled water before each usage. 5. Watching and losing weight. 6. Precautions related to driving. No driving if feel any sleepiness. 7. I will maintain prescription for PAP supplies including mask, tube, filters. 8. Follow up visit in 8 months or earlier if patient has any problems. Thank you very much for allowing me to participate in the management of your patient. Daniel Noel MD, PhD, FAASM. Diplomat of [place] [employer], Sleep Medicine Board by [place] [employer] [facility] [facility] [place] Objective - Vital Signs Vital Signs: Vital Signs Temp 97.5 F L 09/09/24 10:33 Pulse 65 09/09/24 10:33 Resp 20 09/09/24 10:33 BP 147/70 09/09/24 10:33 Pulse Ox 95 09/09/24 10:33 FiO2 Home Medications: Home Medications Medication Instructions Recorded Confirmed Type Aspirin 81 mg PO DAILY 03/19/18 06/25/23 History Calcium Carbonate [Calcium] 600 mg PO DAILY 03/19/18 06/30/24 History Levothyroxine Sodium [Synthroid] 50 mcg PO DAILY 03/19/18 09/09/24 History Pravastatin Sodium [Pravachol] 20 mg PO DAILY 03/19/18 09/09/24 History L.acidoph,Paracasei, B.lactis 1 cap PO DAILY 06/19/22 06/30/24 History [Probiotic] Losartan Potassium [Cozaar] 50 mg PO DAILY 06/19/22 09/09/24 History Nf-Plexus Biocleanse 1 tab PO DAILY 10/08/22 06/30/24 History Nf-Plexus Plant Based [place] 3 1 tab PO DAILY 10/08/22 06/30/24 History Aspirin [Adult Low Dose Aspirin EC] 81 mg PO DAILY 06/30/24 06/30/24 History Cholecalciferol (Vitd3)/Vit K2 1 each PO DAILY 06/30/24 06/30/24 History [Vit D3-Vit K2 125-100 Mcg Sfgl] Multivitamin [Multivitamins Adult 1 each PO DAILY 06/30/24 06/30/24 History Gummies]
== END ==
LOC: 3 N SLEEP 10:22
PROVIDERS: ATTEND Internal Medicine
DX: G47.33 Obstructive sleep apnea (adult) (pediatric) (principal); E66.9 Obesity, unspecified; I10 Essential (primary) hypertension; E78.5 Hyperlipidemia, unspecified; E03.9 Hypothyroidism, unspecified; J30.2 Other seasonal allergic rhinitis; Z86.39 Personal history of other endocrine, nutritional and metabolic disease; Z87.09 Personal history of other diseases of the respiratory system; Z68.36 Body mass index [BMI] 36.0-36.9, adult; Z85.820 Personal history of malignant melanoma of skin; Z99.89 Dependence on other enabling machines and devices; Z88.5 Allergy status to narcotic agent
CPT/HCPCS: 99212